=== PATIENT | male | born 1965 | race Caucasian/White ===

== ENCOUNTER → 2021-06-13 14:18 | Outpatient (BNVA) | payer SELFPAY | PROVIDERS: PCP Family Medicine; Visit Provider Physician Assistant Medical | DX: Z02.79 Encounter for issue of other medical certificate (principal) ==

== ENCOUNTER → 2022-06-09 12:37 | Outpatient (BNVA) | payer SELFPAY | PROVIDERS: PCP Family Medicine; Visit Provider Internal Medicine | DX: Z02.79 Encounter for issue of other medical certificate (principal) ==

== ENCOUNTER 2023-03-11 16:29 | Emergency (ER) | payer OTHER, SELFPAY ==
[2023-03-11] VITALS (9 sets, daily range): BP systolic 143–210; BP diastolic 91–120; PULSE 87–95; RESP 14–18; TEMP 37.2; O2SAT 96–98; BMI 28.5
--- NOTE | ~2023-03-11 | CT_ITS ---
EXAMINATION: CT HEAD WITHOUT CONTRAST CLINICAL INFORMATION: Headache. Hypertension. COMPARISON: None available. TECHNIQUE: Contiguous axial imaging was performed from the skull base to vertex without intravenous administration of contrast. This CT examination was performed using dose optimization techniques as appropriate, variously including the following: *Automated exposure control *Adjustment of mA and/or kV according to patient size (this includes techniques or standardized protocols for targeted exams where dose is matched to indication/reason for exam; i.e. extremities or head) *Use of iterative reconstruction technique DLP: 776 mGy-cm FINDINGS: No intracranial hemorrhage, tumors or acute infarcts noted. Mild diffuse commensurate prominence of ventricles and sulci. No focal parenchymal lesions of the brain. Mild scattered calcific plaques within the cavernous portions of the internal carotid arteries. Orbits and globes are normal in appearance. No significant opacification of the visualized paranasal sinuses, mastoid air cells and middle ear cavities. CT/CT head/brain wo IV con IMPRESSION: No acute intracranial abnormalities.
--- NOTE | 2023-03-11 17:05 | ED.GENADULT ---
HPI - General Adult General Chief complaint: Recheck/Abnormal Lab/Rx Stated complaint: high blood pressures Time Seen by Provider: 03/11/23 17:53 Source: patient Mode of arrival: ambulatory Limitations: no limitations History of Present Illness HPI narrative: Patient with history of hypertension alcohol use , takes metoprolol 50 mg daily usual blood pressure 130/80 woke up today at 06:00 o'clock noticed heaviness in the head blood pressure was 178/116 no nausea no vomiting no chest pain patient took extra metoprolol 50 mg an hour prior to arrival in the ER blood pressure was 168/111 no chest pain or palpitation is still feeling heavy diffusely in the head patient had a last drink last night under increased stress lately Related Data Previous Rx's Medication Instructions Recorded lorazepam 2 mg tablet (Ativan) 2 mg PO Q6-8H PRN alcohol 03/11/23 withdrawal #20 tabs losartan 50 mg tablet 50 mg PO DAILY #30 tabs 03/11/23 Allergies Allergy/AdvReac Type Severity Reaction Status Date / Time No Known Allergies Allergy Verified 03/11/23 17:05 [No Known Allergies*] Review of Systems Review of Systems: Yes all other systems are reviewed and are negative [facility] Social History Alcohol intake: current Alcohol intake frequency: a few times a month Alcohol type: hard liquor Smoked in Last 30 Days: No Use of substances other than those prescribed or required for medical reasons: No Advance Directives: No Advance Directives Information Provided: Yes Physical Exam ED Vital Signs: Vital Signs - 24 hr 03/11/23 17:05 03/11/23 17:59 03/11/23 18:21 Temperature 99 F Pulse Rate 94 89 89 Respiratory Rate 18 Blood Pressure 168/111 H 193/117 H 210/120 H Pulse Oximetry 96 Oxygen Delivery Method Room Air 03/11/23 18:45 03/11/23 19:09 03/11/23 19:45 Temperature Pulse Rate 91 91 89 Respiratory Rate 14 16 16 Blood Pressure 182/114 H 175/108 H 172/110 H Pulse Oximetry 96 Oxygen Delivery Method Room Air 03/11/23 19:59 03/11/23 20:49 03/11/23 22:42 Temperature Pulse Rate 95 87 Respiratory Rate 16 16 Blood Pressure 183/115 H 143/91 H 156/95 H Pulse Oximetry 98 Oxygen Delivery Method Room Air BMI result Body Mass Index 28.5 Appearance: Alert. Oriented X3. No acute distress. Anxious Eyes: PERRLA, No Nystagmus ENT: Pharynx normal. Oral Mucosa moist Neck: Normal inspection. Neck supple. CVS: Normal heart rate and rhythm. Pulses normal. Respiratory: No respiratory distress. Equal air entry bilateral, no wheezing/rales/rhonchi Abdomen: Soft and nontender. Bowel sounds are present, no mass palpable, no CVA tenderness Skin: Skin warm and dry. Normal skin color. Normal skin turgor. Extremities: No lower extremity edema. No calf tenderness Neuro: Oriented X 3. No motor deficit. No sensory deficit.No cerebellar signs , cranial nerves II-XII intact tremors+ Course Course Course Narrative: RME: 57yo M w/PMHx HTN, A.fib not on AC, GERD c/o CRUZ and elevated BP's at home (200's/100's) x this AM. Admits to LUE feeling funny, feeling flush and neck increased pressure. Admits to taking Metoprolol w/compliance. 168/111 in triage EKG, Labs, Head CT ordered Full HPI, ROS and PE to be performed by primary ED provider. Medications Administered Discontinued Medications Generic Name Dose Route Start Last Admin Trade Name Freq PRN Reason Stop Dose Admin Labetalol HCl 20 mg 03/11/23 18:01 03/11/23 18:26 Labetalol Hcl 100 Mg/20 Ml Vial IVPUSH 03/11/23 18:02 20 mg ONCE ONE Administration Labetalol HCl 20 mg 03/11/23 20:01 03/11/23 20:05 Labetalol Hcl 100 Mg/20 Ml Vial IVPUSH 03/11/23 20:02 20 mg ONCE ONE Administration Lorazepam 1 mg 03/11/23 19:23 03/11/23 19:47 Lorazepam 2 Mg/Ml Vial IVPUSH 03/11/23 19:24 1 mg ONCE ONE Administration Lorazepam 2 mg 03/11/23 21:56 03/11/23 22:43 Lorazepam 1 Mg Tablet PO 03/11/23 21:57 2 mg ONCE ONE Administration Losartan Potassium 50 mg 03/11/23 21:55 03/11/23 22:43 Losartan Potassium 50 Mg Tablet PO 03/11/23 21:56 50 mg ONCE ONE Administration Protocol Medical Decision Making Medical Decision Making MDM Narrative: Patient with alcohol abuse with elevated pressure and increased stress blood pressure improved after 2 doses of IV labetalol and p.o. losartan alert as a pimple or withdrawal. Patient advised to stop drinking alcohol was given Ativan prescription and will add losartan along with continue metoprolol CT head was negative for SAH/SDH Differential Diagnosis Differential Diagnoses: The differential diagnosis associated with the presentation includes As above Admission/Observation Consideration of admission/observation: Escalation of care including admission/observation considered Lab Data [facility] Lab Attestation statement: I reviewed the patient's lab results. 03/11/23 17:13 03/11/23 17:13 Labs: Lab Results 03/11/23 Range/Units 17:13 WBC 7.8 (4.8-10.8) X10*3/uL RBC 4.95 (4.60-5.80) X10*6/uL Hgb 16.7 (14.0-18.0) g/dl Hct 47.1 (42.0-52.0) % MCV 95.2 (80.0-98.0) fL MCH 33.7 H (27.0-33.0) pg MCHC 35.5 (31.0-36.0) g/dl RDW 12.4 (11.0-16.0) % Plt Count 182 (160-400) X10*3/uL MPV 8.3 L (9.4-12.4) fL Immature Gran % (Auto) 0.3 (0.0-0.4) % Neut % (Auto) 79.8 H (45-73) % Lymph % (Auto) 12.4 L (20-40) % [place] % (Auto) 6.6 (2-11) % Eos % (Auto) 0.3 (0-4) % Baso % (Auto) 0.6 (0-2) % Lymph # (Auto) 1.0 L (1.2-4.9) X10*3/uL [place] # (Auto) 0.5 (0.1-1.2) X10*3/uL Eos # (Auto) 0.0 (0.0-0.4) X10*3/uL Baso # (Auto) 0.1 (0.0-0.2) X10*3/uL Abs Immat Gran (auto) 0.02 (0.00-0.03) X10*3/uL Absolute Neuts (auto) 6.3 (2.0-8.3) x10*3/uL Absolute Nucleated RBC 0.000 (0.0-0.012) X10*3/uL Nucleated RBC % (auto) 0.0 (0.0-0.2) /100WBC PT 11.6 (11.1-13.3) SEC INR 1.0 (0.9-1.1) Sodium 136 (135-145) mmol/L Potassium 4.0 (3.3-5.1) mmol/L Chloride 99 (96-108) mmol/L Carbon Dioxide 23 (22-29) mmol/L Anion Gap 18 (12-20) BUN 15 (9-16) mg/dL Creatinine 0.88 (0.5-1.4) mg/dL Estim Creat Clear Calc 117.3 Estimated GFR > 60 Random Glucose 100 (60-115) mg/dL Calcium 9.9 (8.4-10.2) mg/dL Magnesium 1.7 (1.6-2.6) mg/dL Total Bilirubin 0.7 (0.0-1.0) mg/dL Direct Bilirubin 0.2 (0.0-0.5) mg/dL AST 21 (5-37) U/L ALT 28 (0-40) U/L Alkaline Phosphatase 64 (39-117) U/L Troponin I High Sens < 2.7 (<3.5-35.0) ng/L Total Protein 8.2 H (6.5-8.0) g/dL Albumin 4.7 (3.5-5.0) g/dL Ethyl Alcohol < 10 mg/dL Independent Interpretation I performed an independent interpretation of an: EKG Interpretation: Normal sinus rhythm heart rate 82 beats per minute occasional PVCs no acute ST change and no acute ischemia Discharge Plan Discharge Clinical Impression: Hypertension, Alcohol withdrawal Patient Disposition: Home, Self-Care Instructions: Chronic Hypertension (ED), Alcohol Use Disorder (ED) Additional Instructions: Stop drinking alcohol Take blood pressure medication and add losartan 50 mg daily along with metoprolol Normal blood pressure should be less than 135/85 Follow with PCP Ativan for alcohol withdrawal as prescribed and follow detox Prescriptions: New lorazepam [Ativan] 2 mg tablet 2 mg PO Q6-8H PRN (Reason: alcohol withdrawal) Qty: 20 0RF losartan 50 mg tablet 50 mg PO DAILY Qty: 30 0RF Stand Alone Forms: Work/School Release Interventions: ED Discharge Assessment Last Done: 03/11/23 22:48 Discharge Date/Time: 03/11/23 22:49
--- NOTE | 2023-03-11 17:08 | ECG_ITS ---
Test Reason : HYPERTENSION Blood Pressure : / mmHG Vent. Rate : 082 BPM Atrial Rate : 082 BPM P-R Int : 142 ms QRS Dur : 090 ms QT Int : 356 ms P-R-T Axes : 034 027 033 degrees QTc Int : 415 ms Sinus rhythm with sinus arrhythmia with occasional Premature ventricular complexes Possible Left ventricular hypertrophy Abnormal ECG No previous ECGs available Referred By: Teresa Jackson Electronically Signed By:REGLA HAGAN MD
[2023-03-11 17:19] LABS: MANUAL DIFF FLAG NO
[2023-03-11 17:24] LABS: Basophils Absolute Auto 0.1 X10*3/uL (0.0-0.2); Basophils Percent Auto 0.6 % (0-2); Eosinophils Percent Auto 0.3 % (0-4); Hematocrit 47.1 % (42.0-52.0); Hemoglobin 16.7 g/dl (14.0-18.0); Imm Gran Abs Auto 0.02 X10*3/uL (0.00-0.03); Imm Gran Pct Auto 0.3 % (0.0-0.4); Lymphocytes Percent Auto 12.4 % (20-40); Mean Corpuscular HGB Conc 35.5 g/dl (31.0-36.0); Mean Corpuscular Hemoglobin 33.7 pg (27.0-33.0); Mean Corpuscular Volume 95.2 fL (80.0-98.0); Mean Platelet Volume 8.3 fL (9.4-12.4); Monocytes Absolute Auto 0.5 X10*3/uL (0.1-1.2); Monocytes Percent Auto 6.6 % (2-11); Neutrophils Absolute Auto 6.3 x10*3/uL (2.0-8.3); Neutrophils Percent Auto 79.8 % (45-73); Platelet Count 182 X10*3/uL (160-400); Red Blood Count 4.95 X10*6/uL (4.60-5.80); Red Cell Distribution Width 12.4 % (11.0-16.0); White Blood Count 7.8 X10*3/uL (4.8-10.8)
[2023-03-11 17:33] LABS: Prothrombin Time 11.6 SEC (11.1-13.3)
[2023-03-11 17:44] LABS: Alanine Aminotransferase 28 U/L (0-40); Albumin Level 4.7 g/dL (3.5-5.0); Alkaline Phosphatase 64 U/L (39-117); Anion Gap 18 (12-20); Aspartate Amino Transferase 21 U/L (5-37); Bilirubin Direct 0.2 mg/dL (0.0-0.5); Bilirubin Total 0.7 mg/dL (0.0-1.0); Blood Urea Nitrogen 15 mg/dL (9-16); Calcium 9.9 mg/dL (8.4-10.2); Carbon Dioxide 23 mmol/L (22-29); Chloride 99 mmol/L (96-108); Creatinine Clr Calc Pharmacy 117.3; Estimated Glomerular Filt Rate > 60; Glucose Random 100 mg/dL (60-115); Magnesium 1.7 mg/dL (1.6-2.6); Sodium 136 mmol/L (135-145); Total Protein 8.2 g/dL (6.5-8.0); Troponin-I High Sensitivity < 2.7 ng/L (<3.5-35.0)
[2023-03-11 18:23] LABS: Ethanol < 10 mg/dL
[2023-03-11] MEDS: Labetalol HCL 100 MG/20 ML VIAL 20 MG IVPUSH ×2 (18:26→20:05)
[2023-03-11] MEDS: LORazepam 2 MG/ML VIAL 1 MG IVPUSH (19:47)
[2023-03-11] MEDS: Losartan Potassium 50 MG TABLET PO (22:43)
[2023-03-11] MEDS: LORazepam 1 MG TABLET 2 MG PO (22:43)
== END 2023-03-11 22:49 | disposition home or self-care (01) ==
PROVIDERS: Physician Assistant; Emergency Provider Internal Medicine
DX: F10.239 Alcohol dependence with withdrawal, unspecified (principal); Y90.0 Blood alcohol level of less than 20 mg/100 ml; R51.9 Headache, unspecified; I49.9 Cardiac arrhythmia, unspecified; F43.9 Reaction to severe stress, unspecified; Z79.899 Other long term (current) drug therapy; Z71.41 Alcohol abuse counseling and surveillance of alcoholic
CPT/HCPCS: 36415; 70450; 80048; 80076; 80307; 83735; 84484; 85025; 85610; 93005; 96374; 96375; 96376; 99284; J1920; J2060

== ENCOUNTER 2023-03-15 17:28 | Inpatient (IN) | payer OTHER, SELFPAY ==
--- NOTE | ~2023-03-15 | CT_ITS ---
EXAMINATION: CT HEAD WITHOUT CONTRAST CLINICAL INFORMATION: Fall. Head strike. COMPARISON: 03/11/2023 TECHNIQUE: Contiguous axial imaging was performed from the skull base to vertex without intravenous administration of contrast. This CT examination was performed using dose optimization techniques as appropriate, variously including the following: *Automated exposure control *Adjustment of mA and/or kV according to patient size (this includes techniques or standardized protocols for targeted exams where dose is matched to indication/reason for exam; i.e. extremities or head) *Use of iterative reconstruction technique DLP: 771 mGy-cm FINDINGS: The lateral, third and fourth ventricles are normally outlined. The cortical sulci and basal cisterns are normally outlined as well. There is mild bilateral periventricular diminished attenuation. There is no acute territorial defect, hemorrhage or midline shift. The extra-axial spaces are unremarkable. Calvarium: Intact. Maxilla facial sinuses and mastoids: Clear as visualized CT/CT head/brain wo IV con IMPRESSION: No acute intracranial abnormality. No significant interval change.
--- NOTE | ~2023-03-15 | CT_ITS ---
EXAMINATION: CT ABDOMEN AND PELVIS WITHOUT CONTRAST CLINICAL INFORMATION: Sacrum pain, fall. COMPARISON: None available. TECHNIQUE: Multidetector volumetric imaging was performed from the superior aspect of the liver through the pubic symphysis. Sagittal and coronal reformatted images were obtained on the technologist's workstation. This CT examination was performed using dose optimization techniques as appropriate, variously including the following: *Automated exposure control *Adjustment of mA and/or kV according to patient size (this includes techniques or standardized protocols for targeted exams where dose is matched to indication/reason for exam; i.e. extremities or head) *Use of iterative reconstruction technique DLP: 667 mGy-cm FINDINGS: The lack of intravenous contrast limits evaluation of the solid visceral organs including the liver, spleen, pancreas, and kidneys. LUNG BASES: The visualized lung bases are unremarkable. LIVER, GALLBLADDER, AND BILIARY TREE: The liver is normal in size, shape, and attenuation. No focal hepatic lesion or biliary ductal dilatation is present. The gallbladder is unremarkable with no evidence of radiopaque gallstones, gallbladder wall thickening, or obvious pericholecystic inflammatory changes. PANCREAS: Unremarkable. SPLEEN: Unremarkable. ADRENAL GLANDS: Unremarkable. KIDNEYS AND URETERS: The kidneys are normal in size, shape, and attenuation. No hydronephrosis, hydroureter, or calculi seen. No perinephric stranding. BLADDER: Unremarkable. GASTROINTESTINAL TRACT: The stomach and the small bowel are nondilated. Duodenal diverticulum. Normal appendix. Mild colonic diverticulosis without significant pericolonic fat stranding or free fluid. No bowel obstruction. ABDOMINAL WALL: Small fat-containing left-sided inguinal hernia. LYMPH NODES: No lymphadenopathy. VASCULAR: Scattered atherosclerotic disease. Normal caliber abdominal aorta. PELVIC VISCERA: Partially imaged left-sided hydrocele. The scrotal sacs are not included in the [id number]. Vasectomy clips. OSSEOUS STRUCTURES: Subtle cortical deformity of the upper coccyx with mild approximately 3 mm of retrolisthesis of S5 with respect to the upper coccyx. CT/CT abdomen pelvis wo IV con IMPRESSION: 1. Mild subluxation of the sacrococcygeal junction with minimal cortical deformity of the upper coccyx, suspicious for injury. 2. No additional acute traumatic sequela in this limited noncontrast examination. 3. Partially imaged left-sided hydrocele. 4. Mild colonic diverticulosis without evidence of acute diverticulitis.
--- NOTE | ~2023-03-15 | XR_ITS ---
EXAMINATION: XR SACRUM AND COCCYX CLINICAL INFORMATION: Fall, tenderness COMPARISON: None available. TECHNIQUE: 2 views of the sacrum and 2 views of the coccyx were obtained. FINDINGS: There is horizontal line along sacrococcygeal junction suspicious for a fracture of indeterminate age. There is minimal presacral soft tissue thickening seen. The SI joints are symmetrical and normal. Rest of the visualized bones are grossly unremarkable. XR/XR sacrum coccyx min 2V IMPRESSION: Horizontal lucent line along the sacrococcygeal junction suspicious of a fracture of indeterminate age. There is minimal presacral soft tissue thickening question edema
[2023-03-15 17:34] VITALS: BP 160/104; PULSE 87; RESP 19; TEMP 36.7; O2SAT 97; BMI 28.2
--- NOTE | 2023-03-15 17:34 | ED.GENADULT ---
HPI - General Adult General Chief complaint: General Medical Stated complaint: high bp Time Seen by Provider: 03/15/23 21:40 Source: patient Mode of arrival: ambulatory History of Present Illness HPI narrative: 57-year-old male who is a frequent alcoholic drinker presents with headache/head pressure, elevated blood pressure and reported shortness of breath today. Patient states that he was seen on Sunday for the same symptoms and discharged on blood pressure medication as well as Ativan. Patient states that he took Ativan on Sunday and subsequently fell striking his head and currently has complaints of sacral pain but denies any numbness/weakness/tingling into either lower extremity. He has otherwise been able to attend work but states that his last drink was on Sunday. Related Data Previous Rx's Medication Instructions Recorded lorazepam 2 mg tablet (Ativan) 2 mg PO Q6-8H PRN alcohol 03/11/23 withdrawal #20 tabs losartan 50 mg tablet 50 mg PO DAILY #30 tabs 03/11/23 Allergies Allergy/AdvReac Type Severity Reaction Status Date / Time No Known Allergies Allergy Verified 03/11/23 17:05 [No Known Allergies*] Review of Systems Review of Systems: Pertinent positives and negatives as stated in HPI [facility] Past Medical History Source: nursing notes reviewed Social History Social History Alcohol intake: current Alcohol intake frequency: 3 or more drinks per day Alcohol type: hard liquor Smoked in Last 30 Days: No Use of substances other than those prescribed or required for medical reasons: No Advance Directives: No Advance Directives Information Provided: No Physical Exam ED Vital Signs: Vital Signs - 24 hr 03/15/23 17:34 03/15/23 21:06 03/15/23 22:02 Temperature 98.0 F 98.2 F Pulse Rate 87 96 74 Respiratory Rate 19 14 16 Blood Pressure 160/104 H 142/108 H 158/104 H Pulse Oximetry 97 98 98 Oxygen Delivery Method Room Air Room Air Room Air 03/16/23 00:31 Temperature 97.8 F Pulse Rate 74 Respiratory Rate 18 Blood Pressure 142/98 H Pulse Oximetry 97 Oxygen Delivery Method Room Air BMI result Body Mass Index 28.2 VITAL SIGNS: Reviewed. GENERAL: Well developed, well nourished, in no acute distress. HEAD: Normocephalic/abrasion to right upper orbit EYES: PERRLA, EOMI EARS: Ext canals without abnormality NOSE: Nares patent bilateral OROPHARYNX: no oral lesions noted, posterior pharynx clear NECK: Supple, no adenopathy LUNGS: Normal breath sounds. No adventitious sounds or accessory muscle use. SpO2<98> CARDIOVASCULAR: Regular rate and rhythm without noted murmurs, no JVD or lower extremity edema. ABDOMEN: Soft, non-tender, non-distended with bowel sounds,no ecchymosis noted to either flank BACK: No posterior back ecchymosis or contusions noted no midline vertebral tenderness or step-offs noted, there is an ecchymotic area noted at the superior aspect of the gluteal cleft PELVIS: Stable, nontender MUSCULOSKELETAL: No tenderness, deformities, or effusions noted on gross inspection EXTREMITIES: No cyanosis, clubbing or edema. LEFT ELBOW: Significant ecchymosis/contusion without noted deformity, full range of motion noted, neurovascular is intact distally LEFT KNEE: Ecchymosis/contusion without deformity, full range of motion noted and neurovascular is intact distally SKIN: Inspection of the skin reveals no rashes NEUROLOGIC: Alert and oriented x 4. Strength and sensation to light touch were grossly intact x 4. Course Course Course Narrative: This is a rapid medical exam: Additional HPI, ROS, PE not included below will be deferred to primary provider. Patient is a 57-year-old male with history of HTN, afib, alcohol use presenting to the emergency department with complaint of high blood pressure, dyspnea on exertion today, headache. Seen here on 03/11 for similar symptoms. States last reading at home was 168/114. Patient states he has been taking his metoprolol and losartan as prescribed as well as ativan. Reports a fall on Sunday with head strike. Laceration noted to right eyebrow, also complaining of pain to coccyx. Patient states he had a few drinks on 03/12, then stopped after that. No drinks yesterday or today. Plan: EKG, labs, CT head, x-ray Medical Decision Making Medical Decision Making MDM Narrative: 57-year-old male with history and clinical presentation that my interpretation is directly related to withdrawal symptoms from chronic alcohol use. There are no acute traumatic injuries noted but will proceed with CT imaging to evaluate both the head as well as abdomen/pelvis. I did have a lengthy discussion with the patient who stated that he is trying to detox from alcohol on his own but I cautioned him that this is likely a very dangerous process. I reviewed all investigations and hematologic indices are negative for leukocytosis or left shift, there is no anemia but there is a mild thrombocytopenia 142 which is consistent with patient's chronic use of alcohol. Chemistry indices are grossly within normal limits there is no demonstration of ANTHONY I or electrolyte derangements. I sensitivity troponin is undetectable. Patient did not report chest pain but did report I blood pressure. BAL-undetectable. CT of the head negative for evidence to suggest intracranial pathology such as hemorrhage. X-ray of sacral coccyx area demonstrates a line lucency suspicious for possible fracture, will follow up with CT of abdomen and pelvis. CT scan of abdomen and pelvis demonstrates mild subluxation of the sacrococcygeal junction with minimal cortical deformity, patient does not have any neuro deficits secondary to this injury. I discussed extensively all results, findings with the patient at bedside and expressed my concerns regarding his significant withdrawal symptoms at this time. I did explain to the patient that I felt it was unsafe for him to continue attempting to withdrawal at home as a could result in life-threatening injury. Patient acknowledges and is agreeable to admission. His is also at bedside. Patient has been placed on a CIWA as well as a phenobarb withdrawal protocol. 0036: I discussed this case with inpatient hospitalist who accepts admission. Differential Diagnosis Differential Diagnoses: The differential diagnosis associated with the presentation includes Please see the discussion above Admission/Observation Consideration of admission/observation: Escalation of care including admission/observation considered Please see the discussion above Consult Healthcare Provider Management of the patient was discussed with: Hospitalist Please see the discussion above Lab Data MDM Lab Attestation statement: I reviewed the patient's lab results. Please see the discussion above 03/15/23 17:54 03/15/23 17:53 Labs: Lab Results 03/15/23 03/15/23 Range/Units 17:53 17:54 WBC 8.0 (4.8-10.8) X10*3/uL RBC 4.61 (4.60-5.80) X10*6/uL Hgb 15.3 (14.0-18.0) g/dl Hct 45.0 (42.0-52.0) % MCV 97.6 (80.0-98.0) fL MCH 33.2 H (27.0-33.0) pg MCHC 34.0 (31.0-36.0) g/dl RDW 12.3 (11.0-16.0) % Plt Count 142 L (160-400) X10*3/uL MPV 8.8 L (9.4-12.4) fL Immature Gran % (Auto) 0.2 (0.0-0.4) % Neut % (Auto) 69.7 (45-73) % Lymph % (Auto) 18.4 L (20-40) % [place] % (Auto) 10.2 (2-11) % Eos % (Auto) 0.9 (0-4) % Baso % (Auto) 0.6 (0-2) % Lymph # (Auto) 1.5 (1.2-4.9) X10*3/uL [place] # (Auto) 0.8 (0.1-1.2) X10*3/uL Eos # (Auto) 0.1 (0.0-0.4) X10*3/uL Baso # (Auto) 0.1 (0.0-0.2) X10*3/uL Abs Immat Gran (auto) 0.02 (0.00-0.03) X10*3/uL Absolute Neuts (auto) 5.6 (2.0-8.3) x10*3/uL Absolute Nucleated RBC 0.000 (0.0-0.012) X10*3/uL Nucleated RBC % (auto) 0.0 (0.0-0.2) /100WBC Sodium 134 L (135-145) mmol/L Potassium 4.4 (3.3-5.1) mmol/L Chloride 99 (96-108) mmol/L Carbon Dioxide 26 (22-29) mmol/L Anion Gap 13 (12-20) BUN 20 H (9-16) mg/dL Creatinine 0.84 (0.5-1.4) mg/dL Estim Creat Clear Calc 122.3 Estimated GFR > 60 Random Glucose 101 (60-115) mg/dL Calcium 9.9 (8.4-10.2) mg/dL Magnesium 2.5 (1.6-2.6) mg/dL Troponin I High Sens < 2.7 (<3.5-35.0) ng/L Ethyl Alcohol < 10 mg/dL Independent Interpretation I performed an independent interpretation of an: EKG Interpretation: Normal sinus rhythm, HR-78, no STEMI, [place]/QRS/QTC is within normal limits. Radiology Impression Discussion of test interpretation with radiology: I have reviewed the radiologist's reading. Radiologist Impression: Please see the discussion above External Record Review External record reviewed: Outpatient record, Prior outpatient labs and Prior outpatient radiology Chronic Conditions Patient?s care impacted by: Hypertension Critical Care Time Critical Care Time Critical Care Time: Yes Total Critical Care Time: 45 Attestation: I personally attest to this time spent taking care of the patient. Discharge Plan Discharge Clinical Impression: Alcohol withdrawal, Subluxation of sacrum Patient Disposition: Admitted As Inpatient Prescriptions: No Action lorazepam [Ativan] 2 mg tablet 2 mg PO Q6-8H PRN (Reason: alcohol withdrawal) Qty: 20 0RF losartan 50 mg tablet 50 mg PO DAILY Qty: 30 0RF
--- NOTE | 2023-03-15 17:41 | ECG_ITS ---
Test Reason : HYPERTENSION Blood Pressure : / mmHG Vent. Rate : 078 BPM Atrial Rate : 078 BPM P-R Int : 138 ms QRS Dur : 082 ms QT Int : 356 ms P-R-T Axes : 014 026 015 degrees QTc Int : 405 ms Normal sinus rhythm Normal ECG When compared with ECG of 11-MAR-2023 17:34, Premature ventricular complexes are no longer Present Referred By: Alessandra Cooper Electronically Signed By:RIC MARIE MD
[2023-03-15 18:02] LABS: MANUAL DIFF FLAG NO
[2023-03-15 18:09] LABS: Basophils Absolute Auto 0.1 X10*3/uL (0.0-0.2); Basophils Percent Auto 0.6 % (0-2); Eosinophils Absolute Auto 0.1 X10*3/uL (0.0-0.4); Eosinophils Percent Auto 0.9 % (0-4); Hemoglobin 15.3 g/dl (14.0-18.0); Imm Gran Abs Auto 0.02 X10*3/uL (0.00-0.03); Imm Gran Pct Auto 0.2 % (0.0-0.4); Lymphocytes Absolute Auto 1.5 X10*3/uL (1.2-4.9); Lymphocytes Percent Auto 18.4 % (20-40); Mean Corpuscular Hemoglobin 33.2 pg (27.0-33.0); Mean Corpuscular Volume 97.6 fL (80.0-98.0); Mean Platelet Volume 8.8 fL (9.4-12.4); Monocytes Absolute Auto 0.8 X10*3/uL (0.1-1.2); Monocytes Percent Auto 10.2 % (2-11); Neutrophils Absolute Auto 5.6 x10*3/uL (2.0-8.3); Neutrophils Percent Auto 69.7 % (45-73); Platelet Count 142 X10*3/uL (160-400); Red Blood Count 4.61 X10*6/uL (4.60-5.80); Red Cell Distribution Width 12.3 % (11.0-16.0)
[2023-03-15 18:17] LABS: Anion Gap 13 (12-20); Blood Urea Nitrogen 20 mg/dL (9-16); Calcium 9.9 mg/dL (8.4-10.2); Carbon Dioxide 26 mmol/L (22-29); Chloride 99 mmol/L (96-108); Creatinine Clr Calc Pharmacy 122.3; Estimated Glomerular Filt Rate > 60; Glucose Random 101 mg/dL (60-115); Potassium 4.4 mmol/L (3.3-5.1); Sodium 134 mmol/L (135-145)
[2023-03-15 18:18] LABS: Ethanol < 10 mg/dL
[2023-03-15 18:32] LABS: Troponin-I High Sensitivity < 2.7 ng/L (<3.5-35.0)
[2023-03-15 21:06] VITALS: BP 142/108; PULSE 96; RESP 14; O2SAT 98
[2023-03-15 22:02] VITALS: BP 158/104; PULSE 74; RESP 16; TEMP 36.8; O2SAT 98
[2023-03-15 23:38] LABS: Magnesium 2.5 mg/dL (1.6-2.6)
[2023-03-16] VITALS (13 sets, daily range): BP systolic 107–144; BP diastolic 72–100; PULSE 63–93; RESP 16–20; TEMP 36.3–36.8; O2SAT 95–98; BMI 27.7
--- NOTE | 2023-03-16 01:08 | PC.NURSE ---
med red complete, IV placed. pt resting comfortably at this time
[2023-03-16] MEDS: PHENobarbitaL sodium 130 MG/ML IM ONCE 384 MG IM (01:24)
--- NOTE | 2023-03-16 01:46 | PM.IMHP ---
History of Present Illness Date of Service: 03/16/23 Chief Complaint: fall, headache 57M PMH etoh dependence, htn, presented with fall, headache. Patient reports recently starting losartan and metoprolol for high blood pressure 3 days prior to presentation. After which he fell hitting his head and his tailbone. Has been feeling a bit off. Last alcoholic drink was 2 days prior to presentation. Also reporting headaches and mild shortness of breath. In ED CT head was negative. Coccyx showed indeterminate aged fracture, shortness of breath had resolved. Started showing signs of withdrawal so started on phenobarbital. Review of Systems Review of Systems: Yes all other systems are reviewed and are negative [facility] Medical History (Updated 03/16/23 @ 01:50 by Alan Lizarraga MD) EtOH dependence Social History Alcohol intake: current Alcohol intake frequency: 3 or more drinks per day Alcohol type: hard liquor Patient Tobacco Use Status: Former Tobacco user Meds Allergies Allergy/AdvReac Type Severity Reaction Status Date / Time No Known Allergies Allergy Verified 03/11/23 17:05 [No Known Allergies*] Active Medications: Current Medications Losartan Potassium (Losartan Potassium 50 Mg Tablet) 50 mg PO DAILY [facility]; Protocol Metoprolol Succinate (Metoprolol Succinate Er 50 Mg Tab.Er.24h) 50 mg PO DAILY [facility]; Protocol Omeprazole (Omeprazole 20 Mg Capsule.Dr) 20 mg PO DAILY [facility] Pharmacy Consult (Consult Rx Etoh Phenob Im/Po) 1 each MISCELLANE ONCE PRN; Protocol PRN Reason: Consult order Phenobarbital (Phenobarbital 30 Mg Tablet) 60 mg PO BID [facility]; Protocol Stop: 03/18/23 21:01 Phenobarbital (Phenobarbital 30 Mg Tablet) 30 mg PO BID [facility]; Protocol Stop: 03/20/23 21:01 Phenobarbital (Phenobarbital 30 Mg Tablet) 30 mg PO DAILY [facility]; Protocol Stop: 03/22/23 09:01 Phenobarbital Sodium (Phenobarbital Sodium 130 Mg/Ml Vial Im Q3hx2) 295 mg IM Q3H [facility]; Protocol Stop: 03/16/23 07:01 Home Medications Medication Instructions Recorded Confirmed Last Taken Type metoprolol succinate 50 mg 50 mg PO DAILY 03/16/23 03/16/23 Unknown History tablet,extended release 24 hr omeprazole 20 mg capsule,delayed 20 mg PO DAILY 03/16/23 03/16/23 Unknown History release Physical Exam Vital Signs and Narrative: Vital Signs: Last Vital Signs Temp 97.8 F 03/16/23 00:31 Pulse 74 03/16/23 00:31 Resp 18 03/16/23 00:31 BP 142/98 H 03/16/23 00:31 Pulse Ox 97 03/16/23 00:31 O2 Del Method Room Air 03/16/23 00:31 BMI result Body Mass Index 28.2 General: AO X 3, tremulous Resp: CTA bilateral, no accessory muscles used CVS: S1,S2,RRR GI: soft, non tender, non distended Neuro: motor grossly intact, alert Psych: appropriate affect, appropriate insight Results Labs 03/15/23 17:54 03/15/23 17:53 Labs: Laboratory Results - last 24 hr 03/15/23 03/15/23 17:53 17:54 MCV 97.6 MCH 33.2 H MCHC 34.0 RDW 12.3 Plt Count 142 L MPV 8.8 L Immature Gran % (Auto) 0.2 Neut % (Auto) 69.7 Lymph % (Auto) 18.4 L [place] % (Auto) 10.2 Eos % (Auto) 0.9 Baso % (Auto) 0.6 Lymph # (Auto) 1.5 [place] # (Auto) 0.8 Eos # (Auto) 0.1 Baso # (Auto) 0.1 Abs Immat Gran (auto) 0.02 Absolute Neuts (auto) 5.6 Absolute Nucleated RBC 0.000 Nucleated RBC % (auto) 0.0 Anion Gap 13 Estim Creat Clear Calc 122.3 Estimated GFR > 60 Random Glucose 101 Calcium 9.9 Magnesium 2.5 Ethyl Alcohol < 10 Imaging Radiologist's Impressions: Impressions Head CT 03/15/23 18:09 IMPRESSION: No acute intracranial abnormality. No significant interval change. Sacrum and Coccyx X-Ray 03/15/23 18:13 IMPRESSION: Horizontal lucent line along the sacrococcygeal junction suspicious of a fracture of indeterminate age. There is minimal presacral soft tissue thickening question edema Abdomen/Pelvis CT 03/15/23 22:36 IMPRESSION: 1. Mild subluxation of the sacrococcygeal junction with minimal cortical deformity of the upper coccyx, suspicious for injury. 2. No additional acute traumatic sequela in this limited noncontrast examination. 3. Partially imaged left-sided hydrocele. 4. Mild colonic diverticulosis without evidence of acute diverticulitis. Assessment and Plan (1) Subluxation of sacrum: Status: Acute Plan 57M PMH etoh dependence, htn, presented with fall, headache. etoh dependence with withdrawal ciwa, phenobarb coccyx fracture pain control, PT eval htn metoprolol, losartan dvt prophyalxis - lovenox full code patient with etoh withdrawal, likely to require atleast 2 midnights inpatient of phenobarb protocol. Quality Stroke Does the patient have a stroke diagnosis?: No VTE Prior VTE?: No VTE Risk Level:: Medical - moderate - high VTE Device Contraindication: Treatment Not Indicated VTE Drug Contraindication: N/A - Med Ordered
[2023-03-16] MEDS: Enoxaparin Sodium 40 MG/0.4 ML SYRINGE SUBCUT ×2 (02:59→22:29)
[2023-03-16] MEDS: PHENobarbitaL sodium 130 MG/ML VIAL IM Q3Hx2 295 MG IM ×2 (04:06→08:07)
--- NOTE | 2023-03-16 04:22 | PC.NURSE ---
pt resting comfortably with eyes closed, breathing even and unlabored. no apparent distress. pt medicated per MAR
--- NOTE | 2023-03-16 06:18 | PHA.MEDREC ---
Pharmacy Consult ? Medication Reconciliation Pharmacy has completed the medication reconciliation. DONE BY RN REVIEWED BY PHARMACY
[2023-03-16] MEDS: Omeprazole 20 MG CAPSULE.DR PO (07:47)
[2023-03-16] MEDS: Metoprolol Succinate ER 50 MG TAB.ER.24H PO (07:47)
[2023-03-16] MEDS: Losartan Potassium 50 MG TABLET PO (07:47)
[2023-03-16] MEDS: 0.9 % Sodium Chloride Flush 3 ML SYRINGE IVFLUSH ×2 (07:48→22:30)
--- NOTE | 2023-03-16 09:54 | PC.NURSE ---
PT SEEN BY DR. SCHNEIDER, PT AWARE OF PLAN OF CARE.
--- NOTE | 2023-03-16 10:07 | PC.NURSE ---
PT DENIES ANY SI/HI.
--- NOTE | 2023-03-16 10:22 | PC.NURSE ---
PT HAS REFUSED HIS PHENOBARBITAL MED. PT STATES I JUST WANT TO GO HOME . AWARE.
--- NOTE | 2023-03-16 11:22 | PM.EVENT ---
Event Note Date of Service: 03/16/23 Event Note: pt seen and examined, admitted this morning with alcohol withdrawal, fall with coccyx fracture.. Presently without sings of withdrawal, up and ambulating on his own power and doesn't need PT. Continue phenobarbital for alcohol withdrawal and closely monitor Time Spent With Patient Time: Total time managing care of this patient today ____ minutes.
--- NOTE | 2023-03-16 11:38 | P.DS_ITS ---
DS: Providers Provider Date of Service: 03/16/23 Date of admission: 03/16/23 01:45 Primary care physician: Yazan Barker MD DS: Diagnosis Discharge Diagnosis (1) Subluxation of sacrum: Status: Acute DS: Summary Hospital Course Hospital Course: Patient was admitted and was been treated for alcohl withdrawal and coccyx fracture, he decided to leave AMA. I spoke to him and advised he stay to complete treatment for alcohol but elected to leave against medical and assume full responsibility for his health, include worsening of alcohol withdrawal and even the possibility of . He is alert oriented to self, place and time and able to repeat the conversation in his own words. Advised to stop drinking and to go see his doctor final diagnoses: alcohol withdrawal coccyx fracture Time Attestation Discharge coordination time: Greater than 30 minutes Quality: Safe Use of Opioids Does Pt have an Active Cancer Diagnosis on the Problem List?: No Quality: Stroke Does the patient have a stroke diagnosis?: No Physical Exam Vital Signs: Vital Signs: Last Vital Signs Temp 98.3 F 03/16/23 10:28 Pulse 70 03/16/23 10:28 Resp 16 03/16/23 10:28 BP 139/100 H 03/16/23 10:28 Pulse Ox 97 03/16/23 10:28 O2 Del Method Room Air 03/16/23 10:28 BMI result Body Mass Index 28.2 Const: Other: General: AO X 3, no acute distress Resp: CTA bilateral CVS: S1,S2,RRR GI: +BS, NT, no distention Skin: No rash Neuro: motor grossly intact, no tremors Psych: appropriate affect DS: Data Data Completed and Pending Labs on day of discharge: Laboratory Results - last 24 hr 03/15/23 03/15/23 17:53 17:54 WBC 8.0 RBC 4.61 Hgb 15.3 Hct 45.0 MCV 97.6 MCH 33.2 H MCHC 34.0 RDW 12.3 Plt Count 142 L MPV 8.8 L Immature Gran % (Auto) 0.2 Neut % (Auto) 69.7 Lymph % (Auto) 18.4 L [place] % (Auto) 10.2 Eos % (Auto) 0.9 Baso % (Auto) 0.6 Lymph # (Auto) 1.5 [place] # (Auto) 0.8 Eos # (Auto) 0.1 Baso # (Auto) 0.1 Abs Immat Gran (auto) 0.02 Absolute Neuts (auto) 5.6 Absolute Nucleated RBC 0.000 Nucleated RBC % (auto) 0.0 Sodium 134 L Potassium 4.4 Chloride 99 Carbon Dioxide 26 Anion Gap 13 BUN 20 H Creatinine 0.84 Estim Creat Clear Calc 122.3 Estimated GFR > 60 Random Glucose 101 Calcium 9.9 Magnesium 2.5 Troponin I High Sens < 2.7 Ethyl Alcohol < 10 Discharge Plan Discharge Anticipated Discharge Date/Time: 03/16/23 11:31 Patient Disposition: Left Against Medical Advice Discharge Diagnosis: Alcohol use desorder, coccyx fractre Referrals: Yazan Barker MD [Primary Care Provider] - 1 Week Discharge Medications: Continued lorazepam [Ativan] 2 mg tablet 2 mg PO Q6-8H PRN (Reason: alcohol withdrawal) Qty: 20 0RF losartan 50 mg tablet 50 mg PO DAILY Qty: 30 0RF metoprolol succinate 50 mg tablet extended release 24 hr 50 mg PO DAILY omeprazole 20 mg capsule,delayed release(DR/EC) 20 mg PO DAILY Discharge Orders: Discharge Order (Routine); Ordered 03/16/23 Ordered By: Floyd Diggs Diet: Advance to usual diet Activity on Discharge: As tolerated Care Plan Goals: left ama Health Concerns: left ama Plan of Treatment: left ama Assessment: left ama
--- NOTE | 2023-03-16 12:10 | PC.NURSE ---
THIS IS DR. SCHNEIDER'S 3RD VISIT TO THE PT'S BEDSIDE 2NDARY TO PT KEEPING CHANGING HIS MIND ABOUT HIS ADMISSION TO THE HOSP. THIS LAST VISIT WITH HOSP MD, PT HAS DECIDED AGAIN TO STAY FOR HIS ADMISSION.
[2023-03-16] MEDS: oxyCODONE HCl Immed Release 5 MG TABLET PO ×2 (15:22→22:29)
--- NOTE | 2023-03-16 15:23 | PC.NURSE ---
PT STATES DIARRHEA X 1 IN BATHROOM.
--- NOTE | 2023-03-16 15:37 | MHC.EDTECH ---
This pct assumed care of pt at 1500 ,vitals taken ,urinal empty 400 ml ,fresh Pitcher of water given and a sandwich .
[2023-03-16] MEDS: PHENobarbitaL 30 MG TABLET 60 MG PO (22:30)
[2023-03-17 01:05] VITALS: RESP 20
[2023-03-17 03:33] VITALS: BP 122/74; PULSE 58; RESP 20; TEMP 36.1; O2SAT 98
[2023-03-17] MEDS: oxyCODONE HCl Immed Release 5 MG TABLET PO (04:05)
[2023-03-17 07:30] VITALS: BP 115/76; PULSE 59; RESP 20; TEMP 36.1; O2SAT 96
[2023-03-17] MEDS: Omeprazole 20 MG CAPSULE.DR PO (08:26)
[2023-03-17] MEDS: Losartan Potassium 50 MG TABLET PO (08:26)
[2023-03-17] MEDS: PHENobarbitaL 30 MG TABLET 60 MG PO (08:26)
[2023-03-17] MEDS: Metoprolol Succinate ER 50 MG TAB.ER.24H PO (08:26)
[2023-03-17] MEDS: 0.9 % Sodium Chloride Flush 3 ML SYRINGE IVFLUSH (08:26)
--- NOTE | 2023-03-17 08:55 | MHC.CM.PN ---
CM met with Patient at bedside. Patient lives in a house with his and he required no services nor DME PLATE [employer]ER. Home self care vs Recovery Team intervention r/t ETOH is the tentative plan and CM has initiated and will follow for dc planning. PCP is Dr. Yazan Barker.
[2023-03-17 09:43] VITALS: BP 127/75; PULSE 104; O2SAT 96
[2023-03-17 11:35] VITALS: BP 127/75; PULSE 104; RESP 20; TEMP 36.2; O2SAT 96
--- NOTE | 2023-03-17 12:54 | MHC.CM.PN ---
Patient will be dc to home today, self care.
--- NOTE | 2023-03-17 14:16 | MHC.RECOVRN ---
Recovery Support note: 57 year old Lebanese speaking male presented to [facility] [place] on 03/15/23 as a walk in from home due to HRN, head pain/pressure and SOB.? Pt was later admitted to [facility] for mgmt. of W/D sx . T/w, met with pt to discuss alcohol use. Pt currently denies any cravings or withdrawal symptoms. Pt has been drinking for ?many years? but that his drinking has increased over the last few months due to increased work stressors.? He reports having ?a few drinks? at night to help with anxiety.? His reported last drink was 03/13/23.? Pt reports family h/o alcoholism in both parents.? Pt reports he attended detox for drinking ?a few times? several years ago and that it was effective for a brief period.? Pt sees his drinking as now effecting his marriage, family relationships and health and wants to stop. Pt denied any other ongoing substance use.? ? Medication for AUD were discussed with patient along with services available to include IOP, PHP, RC, therapy, CCC, ATS and pathways to recovery.? Harm reduction education was also provided to pt.? Pt was given the [facility] phone number and encouraged to call with questions or assistance needed.? Pt is being D/C to home today.? Case discussed with patients RN and Trish Velázquez. T/w available as needed.
== END 2023-03-17 14:47 | disposition home or self-care (01) | DRG 897 ==
LOC: HO.ED 03-16 00:41 → HO.EDOVER 03-16 01:53 → HO.IMC 03-16 19:43
PROVIDERS: Registered Nurse Emergency; Admitting Provider Internal Medicine; Emergency Provider Student in an Organized Health Care Education/Training Program; PCP Family Medicine; Visit Provider Internal Medicine
DX: F10.239 Alcohol dependence with withdrawal, unspecified (principal); S32.2XXA Fracture of coccyx, initial encounter for closed fracture; I10 Essential (primary) hypertension; W19.XXXA Unspecified fall, initial encounter; Z87.891 Personal history of nicotine dependence; Z79.899 Other long term (current) drug therapy
CPT/HCPCS: 36415; 70450; 72220; 74176; 80048; 80307; 83735; 84484; 85025; 93005; 97161; 99285; J1650; J2560

== ENCOUNTER → 2023-03-15 17:41 | Outpatient (BNV) | payer OTHER, SELFPAY | PROVIDERS: Admitting Provider Internal Medicine; Emergency Provider Student in an Organized Health Care Education/Training Program; PCP Family Medicine; Visit Provider Internal Medicine Cardiovascular Disease | DX: I49.3 Ventricular premature depolarization (principal); I10 Essential (primary) hypertension | CPT/HCPCS: 93010 ==

== ENCOUNTER → 2023-03-16 01:45 | Outpatient (BNV) | payer OTHER, SELFPAY | PROVIDERS: Admitting Provider Internal Medicine; Emergency Provider Student in an Organized Health Care Education/Training Program; PCP Family Medicine; Visit Provider Internal Medicine | DX: S33.2XXA Dislocation of sacroiliac and sacrococcygeal joint, initial encounter (principal); F10.939 Alcohol use, unspecified with withdrawal, unspecified; Z53.29 Procedure and treatment not carried out because of patient's decision for other reasons | CPT/HCPCS: 99223; 99239; 99499 ==

== ENCOUNTER → 2023-07-12 10:26 | Outpatient (BNVA) | payer SELFPAY | PROVIDERS: PCP Family Medicine; Visit Provider Physician Assistant | DX: Z02.79 Encounter for issue of other medical certificate (principal) ==